=== PATIENT | female | born 1990 | race Hispanic/Latino ===

== ENCOUNTER 2023-01-23 07:16 | Emergency (ER) | payer MEDICAID, OTHER ==
[~2023-01-23] VITALS: Ht 160 cm; Wt 73.5 kg
[2023-01-23 07:52] LABS: BASOPHILS # (AUTO) 0.01 K/uL (0.00-0.20); BASOPHILS % (AUTO) 0.1 % (0.0-5.0); EOSINOPHILS # (AUTO) 0.13 K/uL (0.00-0.70); EOSINOPHILS % (AUTO) 1.7 % (0.0-8.0); HEMATOCRIT 39.2 % (36-48); IMMATURE GRANULOCYTE ABSOLUTE 0.02 K/uL (0-1); LYMPHOCYTES # (AUTO) 1.3 K/uL (1.0-4.8); MEAN CORPUSCULAR HEMOGLOBIN 26.4 pg (27.0-33.0); MEAN CORPUSCULAR HGB CONC 32.1 g/dL (32.0-36.0); MEAN CORPUSCULAR VOLUME 82.2 fL (79-99); MONOCYTES # (AUTO) 0.3 K/uL (0.1-1.0); MONOCYTES % (AUTO) 3.9 % (3.0-13.0); NEUTROPHILS # (AUTO) 5.7 K/uL (1.8-7.7); PLATELET COUNT (AUTO) 203 K/uL (130-400); RED BLOOD CELL COUNT(AUTO) 4.77 MIL/uL (4.00-5.50); RED CELL DISTRIBUTION WIDTH 15.5 % (11.0-15.5); WHITE BLOOD COUNT (AUTO) 7.4 K/uL (4.8-10.8)
[2023-01-23] MEDS ORDERED: 0.9%NACL 1000ML 1,000 ML IV ONE ×2 (07:52→08:00)
[2023-01-23 07:59] LABS: APPEARANCE,URINE CLEAR (CLEAR); BILIRUBIN,URINE NEGATIVE (NEGATIVE); COLOR,URINE YELLOW (YELLOW); GLUCOSE, URINE (UA) NEGATIVE (NEGATIVE); KETONES,URINE NEGATIVE (NEGATIVE); LEUKOCYTE ESTERASE ,URINE NEGATIVE Leu/uL (NEGATIVE); NITRATE,URINE NEGATIVE (NEGATIVE); OCCULT BLOOD,URINE NEGATIVE (NEGATIVE); PROTEIN,URINE NEGATIVE (NEGATIVE); UROBILINOGEN,URINE 0.2 mg/dL (0.2-1.0)
[2023-01-23] MEDS ORDERED: MORPHINE 4 MG SYG IVP ONE (08:00)
[2023-01-23] MEDS ORDERED: ONDANSETRON 4MG INJ IVP ONE (08:00)
[2023-01-23] MEDS ORDERED: IOHEXOL-350 75 ML VIAL IV ONE (08:01)
[2023-01-23 08:27] LABS: ADD UA MICROSCOPIC NO
[2023-01-23 08:30] LABS: CREATININE 0.6 mg/dL (0.5-1.5); POTASSIUM 3.9 mmol/L (3.5-5.1)
[2023-01-23] MEDS ORDERED: MORPHINE 2 MG SYG ONE (11:25)
[2023-01-23] MEDS ORDERED: MORPHINE 2 MG SYG IM ONE (11:30)
[2023-01-23 13:27] VITALS: BP 124/72; PULSE 72; RESP 16; O2SAT 97
== END 2023-01-23 13:42 | disposition home or self-care (01) ==
LOC: EDH 07:16
DX: N83.201 Unspecified ovarian cyst, right side (principal); Z98.890 Other specified postprocedural states
CPT/HCPCS: 99285; 74178; 96374; 96361; 96375; 80048; 83690; 85025; 81003; 36415; 96372; J2270 ×2; J7030; J2405; Q9967